=== PATIENT | male | born 1945 | race Caucasian/White ===

== ENCOUNTER → 2021-09-21 | Outpatient (CLI) | payer MEDICARE, BC ==
[~2021-09-21] MED LIST: BARIUM SULFATE 700 MG TABLET PO ONE; SIMETHICONE/SOD BICARB/CIT AC PACKET PO ONE; barium sulfate 450ml oral suspension ONE
== END | disposition home or self-care (01) ==
LOC: RAD 09:43
PROVIDERS: ATTEND Family Medicine
DX: K44.9 Diaphragmatic hernia without obstruction or gangrene (principal); R13.10 Dysphagia, unspecified
CPT/HCPCS: 74220

== ENCOUNTER 2022-11-29 10:45 | Day surgery (SDC) | payer MEDICARE, BC ==
[~2022-11-29] VITALS: Ht 172.7 cm; Wt 82.8 kg
[2022-11-29] MEDS ORDERED: LIDOcaine 1% 30ml preserv. free vial SQ STA (10:55)
[2022-11-29] MEDS ORDERED: ALBU90AE INH (11:38)
[2022-11-29] MEDS ORDERED: FLO0.4C PO (11:38)
[2022-11-29] MEDS ORDERED: FINA5TAB11 PO (11:38)
[2022-11-29] MEDS ORDERED: CELE-85 PO (11:38)
[2022-11-29] MEDS ORDERED: DULO30CA52 PO (11:38)
[2022-11-29] MEDS ORDERED: FENO145T25 PO (11:38)
[2022-11-29] MEDS ORDERED: TRIA15OI9 TOP (11:38)
[2022-11-29] MEDS ORDERED: PRAV80TA3 PO (11:38)
[2022-11-29] MEDS ORDERED: ASPI-1071 PO (11:38)
[2022-11-29] MEDS ORDERED: OMEP20CA16 PO (11:38)
[2022-11-29] MEDS ORDERED: OMEG-220 PO (11:38)
[2022-11-29] MEDS ORDERED: HYDR-3972 PO (11:38)
[2022-11-29] MEDS ORDERED: CARV-50 PO (11:38)
[2022-11-29 12:12] VITALS: BP 200/93
[2022-11-29 12:26] VITALS: BP 185/106
[2022-11-29 12:41] VITALS: BP 213/98
[2022-11-29 12:50] VITALS: BP 158/86
== END 2022-11-29 13:10 | disposition home or self-care (01) ==
LOC: SSTAY O 10:45
PROVIDERS: ATTEND Radiology Diagnostic Radiology
DX: R59.0 Localized enlarged lymph nodes (principal); I10 Essential (primary) hypertension; F32.A Depression, unspecified; J44.9 Chronic obstructive pulmonary disease, unspecified; Z98.890 Other specified postprocedural states; Z79.899 Other long term (current) drug therapy
CPT/HCPCS: 10005; 76942; 88173; 88305; 88341; 88342; A6449

== ENCOUNTER 2025-01-17 09:00 | Outpatient (CLI) | payer MEDICARE, BC ==
[2025-01-16 12:13] LABS: ALANINE AMINOTRANSFERASE 49 U/L (12-78); ALBUMIN 3.5 G/DL (3.4-5.0); ALKALINE PHOSPHATASE 31 IU/L (46-116); ANION GAP 9 (8-16); ASPARTATE AMINO TRANSFERASE 41 U/L (10-37); BILIRUBIN,TOTAL 0.6 MG/DL (0.1-1.0); BLOOD UREA NITROGEN 16 MG/DL (7-18); BUN/CREATININE RATIO 11.1 (10.0-20.0); CALCIUM 8.9 MG/DL (8.5-10.1); CHLORIDE 105 MMOL/L (99-107); CREATININE 1.44 MG/DL (0.60-1.10); GLUCOSE 120 MG/DL (70-104); POTASSIUM 3.2 MMOL/L (3.5-5.1); SODIUM 143 MMOL/L (135-145); TOTAL CARBON DIOXIDE 28.6 MMOL/L (24-32); TOTAL PROTEIN 7.1 G/DL (6.4-8.2); eGFR 47 ML/MIN
[~2025-01-17 09:00] MED LIST changes: +ALBU90AE INH; +ASPI-1071 PO; -BARIUM SULFATE 700 MG TABLET PO ONE; +CARV-50 PO; +CELE-127 PO; +DULO30CA52 PO; +FENO145T25 PO; +FINA5TAB11 PO; +FLO0.4C PO; +HYDR-3972 PO; +OMEG-270 PO; +OMEP20CA16 PO; +PRAV80TA3 PO; -SIMETHICONE/SOD BICARB/CIT AC PACKET PO ONE; +TRIA15OI9 TOP; -barium sulfate 450ml oral suspension ONE; +iohexol 350MG/ML 100ml bottle IV ONE
== END 2025-01-17 23:59 | disposition home or self-care (01) ==
LOC: RAD 09:00
PROVIDERS: ATTEND Nurse Practitioner Family
DX: R79.89 Other specified abnormal findings of blood chemistry (principal)
CPT/HCPCS: 36415; 71275; 80053; Q9967